=== PATIENT | female | born 1965 | race African-American/Black ===

== ENCOUNTER 2018-11-07 12:27 | Emergency (ER) | payer OTHER ==
[~2018-11-07] VITALS: Ht 167.6 cm; Wt 54.0 kg
[2018-11-07 12:34] VITALS: Ht 167.6 cm; Wt 54.0 kg
[2018-11-07 14:23] LABS: BASOPHIL % 0.6 % (0-2); PLATELET COUNT 232 x10^3mcL (130-400); RED CELL DISTRIBUTION WIDTH 14.4 % (11.5-14.5)
[2018-11-07 14:38] LABS: CALCIUM 9.2 mg/dL (8.5-10.1); CARBON DIOXIDE 26.8 mmol/L (21-32); CHLORIDE SERUM 102 mmol/L (98-107); GFR1 > 60 mL/min; GLUCOSE SERUM 75 mg/dL (74-106); POTASSIUM SERUM 3.6 mmol/L (3.5-5.1); SODIUM SERUM 139 mmol/L (136-145)
[2018-11-07 14:42] LABS: ALBUMIN 3.7 g/dL (3.4-5.0); ALKALINE PHOSPHATASE 89 U/L (46-116); ALT/SGPT 33 U/L (14-59); AST/SGOT 24 U/L (15-37); BILIRUBIN TOTAL 0.7 mg/dL (0.20-1.00); LIPASE 118 IU/L (73-393); TOTAL PROTEIN, SERUM 7.4 g/dL (6.4-8.2)
[2018-11-07 16:08] LABS: UA SPECIFIC GRAVITY <=1.005 (1.005-1.035); microscopic required? YES; urine erythrocyte TRACE (NEGATIVE)
[2018-11-07 17:15] VITALS: BP 150/75
== END 2018-11-07 17:15 | disposition home or self-care (01) ==
LOC: ED 12:27
PROVIDERS: Emergency Medicine
DX: E86.0 Dehydration (principal); R42 Dizziness and giddiness; R21 Rash and other nonspecific skin eruption; I10 Essential (primary) hypertension; Z88.0 Allergy status to penicillin
CPT/HCPCS: J7030